=== PATIENT | female | born 1980 | race Caucasian/White ===

== ENCOUNTER 2018-04-30 16:49 | Emergency (ER) | payer OTHER ==
[~2018-04-30] VITALS: Ht 160 cm; Wt 113.4 kg
[~2018-04-30 16:49] MED LIST: ADIPEX-P37.5 M1 PO; AMOXICILLIN 50500 MG PO; AMOXICILLIN875 MG PO; CIPROFLOXACIN500 M3 PO; CORTISPORIN OTI10 M2 OT; FIORICET 50-321 EACH PO; FLAGYL500 MG PO; NORCO 5-325 TA1 EACH PO; RANITIDINE 150150 MG PO; VENTOLIN17 GM INH; ZPAK PO; ZYRTEC; [UNRECOGNIZED DRUG - REMARK]
[2018-04-30] MEDS ORDERED: TOPAMAX 100 MG100 MG PO (17:07)
[2018-04-30] MEDS ORDERED: [UNRECOGNIZED DRUG - REMARK] (17:08)
[2018-04-30 17:35] LABS: URINE BILIRUBIN NEGATIVE (Negative); URINE BLOOD NEGATIVE (Negative); URINE CLARITY CLEAR; URINE COLOR YELLOW; URINE GLUCOSE-RANDOM NEGATIVE (Negative); URINE KETONES NEGATIVE (Negative); URINE LEUKOCYTES-REFLEX NEGATIVE (Negative); URINE NITRITE-REFLEX NEGATIVE (Negative); URINE PROTEIN NEGATIVE (Negative); URINE SPECIFIC GRAVITY >= 1.030 (1.005-1.030); URINE UROBILINOGEN 0.2 E.U./dl (0.2-1.0)
[2018-04-30] MEDS ORDERED: NABUMETONE 750750 M1 PO (19:21)
[2018-04-30] MEDS ORDERED: ZANAFLEX4 MG PO (19:21)
[2018-04-30 20:14] VITALS: BP 150/92
== END 2018-04-30 20:16 | disposition home or self-care (01) ==
LOC: M.ERS 16:49
PROVIDERS: Nurse Practitioner Family
DX: S39.012A Strain of muscle, fascia and tendon of lower back, initial encounter (principal); G43.909 Migraine, unspecified, not intractable, without status migrainosus; W18.39XA Other fall on same level, initial encounter; Y93.89 Activity, other specified; Y92.89 Other specified places as the place of occurrence of the external cause; Y99.8 Other external cause status

== ENCOUNTER 2018-06-19 16:16 | Emergency (ER) | payer OTHER ==
[~2018-06-19] VITALS: Ht 160 cm; Wt 113.4 kg
[~2018-06-19 16:16] MED LIST changes: +NABUMETONE 750750 M1 PO; +TOPAMAX 100 MG100 MG PO; +ZANAFLEX4 MG PO; +[UNRECOGNIZED DRUG - REMARK]
[2018-06-19] MEDS ORDERED: BIKTARVY 50-201 EACH PO (16:37)
[2018-06-19] MEDS ORDERED: ALLEGRA ALLERG180 MG PO (16:39)
[2018-06-19 16:40] LABS: URINE BILIRUBIN NEGATIVE (Negative); URINE BLOOD TRACE (Negative); URINE CLARITY CLEAR; URINE COLOR YELLOW; URINE GLUCOSE-RANDOM NEGATIVE (Negative); URINE KETONES NEGATIVE (Negative); URINE LEUKOCYTES-REFLEX NEGATIVE (Negative); URINE NITRITE-REFLEX NEGATIVE (Negative); URINE PROTEIN NEGATIVE (Negative); URINE SPECIFIC GRAVITY 1.025 (1.005-1.030); URINE UROBILINOGEN 0.2 E.U./dl (0.2-1.0)
[2018-06-19 17:33] LABS: ALBUMIN 3.6 g/dL (3.4-5.0); CALCIUM 8.4 mg/dL (8.5-10.1); CREATININE 0.8 mg/dL (0.6-1.3); POTASSIUM 3.9 mmol/L (3.5-5.1); TOTAL BILIRUBIN 0.3 mg/dL (<0.1-1.0); TOTAL PROTEIN 7.2 g/dL (6.4-8.2)
[2018-06-19 17:50] LABS: ABSOLUTE EOSINOPHILS 0.4 thou/uL (0.0-0.7); ABSOLUTE LYMPHOCYTES 1.6 thou/uL (0.8-5.3); ABSOLUTE MONOCYTES 0.7 thou/uL (0.0-1.2); ABSOLUTE NEUTROPHILS 2.9 thou/uL (1.6-8.1); BASOPHILS 0.8 %; HEMATOCRIT 38.5 % (37.0-47.0); HEMOGLOBIN 13.4 gm/dL (12.0-15.0); LYMPHOCYTES 28.3 %; MCH 31.9 pg (26.0-34.0); MCHC 34.7 g/dL (28.0-37.0); MCV 91.8 fL (80.0-100.0); MONOCYTES 11.8 %; MPV 7.7 fl. (7.2-11.1); NUCLEATED RBCS 0 /100WBC; PLATELET COUNT* 292 thou/uL (150-400); POLYS 51.1 %; RDW-CV 13.7 % (10.5-14.5); WBC 5.6 thou/uL (4.0-11.0)
[2018-06-19] MEDS ORDERED: PREDNISONE 10 M10 MG PO (18:35)
[2018-06-19] MEDS ORDERED: ROBAXIN 750 MG750 M1 PO (18:35)
[2018-06-19 19:00] VITALS: BP 132/77
== END 2018-06-19 19:30 | disposition home or self-care (01) ==
LOC: M.ERS 16:16
PROVIDERS: Physician Assistant
DX: K52.9 Noninfective gastroenteritis and colitis, unspecified (principal); R31.9 Hematuria, unspecified; G43.909 Migraine, unspecified, not intractable, without status migrainosus